=== PATIENT | male | born 1935 | race Caucasian/White ===

== ENCOUNTER → 2021-05-11 | Outpatient (CLI) | payer MEDICARE ==
[2015-09-07 08:45] VITALS: BP 131/54
[~2021-05-11] MED LIST: ASCO500T53 PO; ASPI81TA50 PO; CEPH-264 PO; FISH12002 PO; GARL10002 PO; GLUC1CAP48 PO; LISI10TA16 PO; MULT1CAP15 PO; ONDA4TAB10 PO; PRAV10TA2 PO; VITA1CAP PO
--- NOTE | 2021-05-11 17:27 | RAD ---
EXAM: Bilateral lower extremity venous Doppler. HISTORY: Bilateral lower extremity pain/swelling. COMPARISON: None. FINDINGS: Grayscale and Doppler analysis of the both lower extremity deep venous systems was performe d with graded compression and augmentation. The common femoral, greater saphenous, superficial femora l, popliteal and calf veins were assessed. There is no evidence of deep venous thrombosis. IMPRESSION: 1. No evidence of deep venous thrombosis. Electronically signed by: Archie Rene MD (05/11/2021 5:25 PM) [id number]
== END ==
LOC: RAD 16:14
PROVIDERS: ATTEND Family Medicine
DX: I87.1 Compression of vein (principal); R60.0 Localized edema
CPT/HCPCS: 93970